=== PATIENT | male | born 1955 | race Two or more races ===

== ENCOUNTER 2018-05-14 07:48 | Inpatient (IN) ==
--- NOTE | 2018-05-14 07:59 | PDOC ---
Neuro Symptoms / Deficit HPI - General Chief Complaint: Neurological Complaints Stated Complaint: STROKE Date Seen by Provider: 05/14/18 Time Seen by Provider: 07:53 Source: POSITIVE: Patient, Other Exam Limitations: POSITIVE: No limitations - History of Present Illness Initial Comments: Patient presents to the emergency department this morning with right-sided facial droop and unsteadiness on his feet. His speech is also slurred. He showed up to work at [address] He states he woke up feeling ill. He states that he went to bed last night at an unknown time. He drinks daily and states he drinks approximately 6 beers daily, normal-sized beers. Patient's only complaint today is right-sided throat pain. He states it hurts when he swallows. His boss and friends accompany him to the emergency department today. The patient does not know when his facial droop started. He states he felt well when he went to bed last night. He states his last alcoholic beverage was approximately 8 PM and his last food intake was approximately 7 PM last night. He denies any chest pain, shortness of breath, abdominal pain, nausea/vomiting/diarrhea. He denies any urinary complaints at this time. Body Location Affected: REPORTS: Head, Face Timing: REPORTS: Abrupt Duration: Unknown Severity: Moderate - Patient Home Medications Home Medications: Home Medications NK 05/14/18 - Patient Allergies Allergies/Adverse Reactions: Allergies 3 Allergy/AdvReac Type Severity Reaction Status Date / Time No Known Allergies Allergy Verified 05/14/18 08:15 Past Medical History - heen HEENT History: Denies History Cardiovascular History: Denies History Respiratory History: Denies History Gastrointestinal History: Denies History Genitourinary History: Denies History Endocrine History: Denies History Musculoskeletal History: Denies History Neurological History: Denies History Blood Disorders: Denies History Psychiatric History: Denies History Cancer History: Denies History History of MDRO: No Alcohol Use: None In the Past 12 Months, Have Used or Abuse Any Substance: None Previous Surgical History: No Significant Family History: No pertinent family hx ROS - Limitations ROS Limitations: Intoxication Constitution: DENIES: Chills, Fever Cardiovascular: REPORTS: Denies Cardiac Symptoms Respiratory: REPORTS: Denies Resp Symptoms Neurological: REPORTS: Confusion, Difficulty Walking, Facial Asymmetry. DENIES : Numbness, Dysphagia Gastrointestinal: REPORTS: Denies GI Symptoms Endocrine: REPORTS: Denies Symptoms Musculoskeletal: REPORTS: Denies MS Symptoms Genitourinary: REPORTS: Denies Symptoms Eyes: REPORTS: Denies Symptoms ENT: REPORTS: Sore Throat Skin: REPORTS: Denies Skin Symptoms Lympathic: REPORTS: Denies Lympathic Symptoms Immunologic: POSITIVE: Denies Symptoms Psychiatric: POSITIVE: Confusion. NEGATIVE: Depression, Suicidal Thoughts Neuro Symptoms / Deficit Exam - General Appearance General Appearance: POSITIVE: Alert, Mild Distress - HEENT HEENT: POSITIVE: PERRL, EOMI, Dry Mucous Membranes, Other (breath smells of alcohol. Right sided facial droop. Speech slurred) - Pupil Size Pupil Size: 4 mm: Bilateral - Neuro / Psych Higher Functions: POSITIVE: Oriented to Person, Oriented to Place, Appropriate Mood, Appropriate Affect, Disoriented to Time, Speech Abnormalities. NEGATIVE: Oriented to Time Cranial Nerves: POSITIVE: Facial Palsy, Forehead Spared. NEGATIVE: Numbness Cerebellar: POSITIVE: Normal As Tested Peripheral Exam: POSITIVE: Sensation Normal, Reflexes Normal. NEGATIVE: Pronator Drift RUE, Pronator Drift LUE Reflexes: Patellar (R): 1+, Patellar (L): 1+, Bicep (R): 1+, Bicep (L): 1+ - Neck Neck: POSITIVE: Supple, Non-Tender. NEGATIVE: Meningismus - Respiratory Respiratory: POSITIVE: No Respiratory Distress, Breath Sounds Normal - Cardiovascular Cardiovascular: POSITIVE: Regular Rate & Rhythm, Heart Sounds Normal Peripheral Pulses: Radial (R): 2+, Radial (L): 2+, Dorsalis-pedis (R): 2+, Dorsalis-pedis (L): 2+ - Abdomen Abdomen: Soft: (All Quadrants), Normal Bowel Sounds: (All Quadrants), Denies Tenderness: (All Quadrants) Neuro Symptom/Deficit Progress - Results Reviewed by me Xrays/CTs/US Reviewed by me: Yes Discussed with Radiologist: Yes Radiology Findings: No acute stroke. Old lacunar infarct Lab Results Reviewed by Me: Yes CBC and BMP: 05/14/18 07:48 05/14/18 07:48 Lab Results:: Laboratory Results 3 05/14/18 05/14/18 05/14/18 07:48 07:48 07:48 WBC 6.50 RBC 5.24 Hgb 16.5 Hct 46.1 MCV 88.0 MCH 31.5 H MCHC 35.8 RDW Std Deviation 45.2 RDW Coeff of Elly 14.1 Plt Count 243 MPV 9.4 Immature Gran % (Auto) 0.2 Neut % (Auto) 57.4 Lymph % (Auto) 33.5 [place] % (Auto) 7.5 Eos % (Auto) 1.1 Baso % (Auto) 0.3 Immature Gran # (Auto) 0.01 Neut # (Auto) 3.73 Lymph # (Auto) 2.18 [place] # (Auto) 0.49 Eos # (Auto) 0.07 Baso # (Auto) 0.02 WBC Morphology Comment Normal morphology Plt Morphology Comment Normal morphology RBC Morph Comment Normal morphology PT 11.2 INR 1.06 APTT 26.2 VBG pH VBG pCO2 VBG HCO3 VBG Base Excess Sodium 135 Potassium 4.3 Chloride 99 Carbon Dioxide 24 Anion Gap 12 BUN 17 Creatinine 0.9 Estimated GFR > 60 BUN/Creatinine Ratio 18.88 Glucose 364 H Calculated Osmolality 296.0 H Calcium 9.2 Total Bilirubin 0.7 AST 34 ALT 35 Alkaline Phosphatase 90 Troponin I Total Protein 7.1 Albumin 4.3 Globulin 2.9 Albumin/Globulin Ratio 1.40 Ur Collection Type Urine Color Urine Clarity Urine pH Ur Specific [place] U Specif Grav (Refrac) Urine Protein Urine Glucose (UA) Urine Ketones Urine Occult Blood Urine Nitrate Urine Bilirubin Urine Urobilinogen Ur Leukocyte Esterase Urine RBC Urine WBC Ur Squamous Epith Cells Ur Renal Epithelial Cell Urine Crystals Urine Bacteria Urine Casts Urine Mucus Urine Trichomonas Urine Yeast Urine Opiates Screen Ur Buprenorphine Ur Oxycodone Screen Urine Methadone Screen Ur Propoxyphene Screen Barbiturate Screen U Tricyclic Antidepress Phencyclidine Screen Amphetamines Screen U Methamphetamines Scrn Benzodiazepines Screen Cocaine Screen U Marijuana (THC) Screen Serum Alcohol 13 H Group A Strep Screen 3 05/14/18 05/14/18 05/14/18 07:48 07:57 08:35 WBC RBC Hgb Hct MCV MCH MCHC RDW Std Deviation RDW Coeff of Elly Plt Count MPV Immature Gran % (Auto) Neut % (Auto) Lymph % (Auto) [place] % (Auto) Eos % (Auto) Baso % (Auto) Immature Gran # (Auto) Neut # (Auto) Lymph # (Auto) [place] # (Auto) Eos # (Auto) Baso # (Auto) WBC Morphology Comment Plt Morphology Comment RBC Morph Comment PT INR APTT VBG pH 7.43 H VBG pCO2 38 L VBG HCO3 25 VBG Base Excess 1 Sodium Potassium Chloride Carbon Dioxide Anion Gap BUN Creatinine Estimated GFR BUN/Creatinine Ratio Glucose Calculated Osmolality Calcium Total Bilirubin AST ALT Alkaline Phosphatase Troponin I < 0.012 Total Protein Albumin Globulin Albumin/Globulin Ratio Ur Collection Type Voided specimen Urine Color Yellow Urine Clarity Clear Urine pH 7.0 Ur Specific [place] 1.015 U Specif Grav (Refrac) Urine Protein Negative Urine Glucose (UA) 500 Urine Ketones Negative Urine Occult Blood Trace Urine Nitrate Negative Urine Bilirubin Negative Urine Urobilinogen 0.2 Ur Leukocyte Esterase Negative Urine RBC Rare Urine WBC 0 Ur Squamous Epith Cells Rare Ur Renal Epithelial Cell None Urine Crystals None Urine Bacteria None Urine Casts None Urine Mucus None Urine Trichomonas None Urine Yeast None Urine Opiates Screen Ur Buprenorphine Ur Oxycodone Screen Urine Methadone Screen Ur Propoxyphene Screen Barbiturate Screen U Tricyclic Antidepress Phencyclidine Screen Amphetamines Screen U Methamphetamines Scrn Benzodiazepines Screen Cocaine Screen U Marijuana (THC) Screen Serum Alcohol Group A Strep Screen 3 05/14/18 05/14/18 08:35 08:45 WBC RBC Hgb Hct MCV MCH MCHC RDW Std Deviation RDW Coeff of Elly Plt Count MPV Immature Gran % (Auto) Neut % (Auto) Lymph % (Auto) [place] % (Auto) Eos % (Auto) Baso % (Auto) Immature Gran # (Auto) Neut # (Auto) Lymph # (Auto) [place] # (Auto) Eos # (Auto) Baso # (Auto) WBC Morphology Comment Plt Morphology Comment RBC Morph Comment PT INR APTT VBG pH VBG pCO2 VBG HCO3 VBG Base Excess Sodium Potassium Chloride Carbon Dioxide Anion Gap BUN Creatinine Estimated GFR BUN/Creatinine Ratio Glucose Calculated Osmolality Calcium Total Bilirubin AST ALT Alkaline Phosphatase Troponin I Total Protein Albumin Globulin Albumin/Globulin Ratio Ur Collection Type Voided specimen Urine Color Urine Clarity Urine pH Ur Specific [place] U Specif Grav (Refrac) 1.022 Urine Protein Urine Glucose (UA) Urine Ketones Urine Occult Blood Urine Nitrate Urine Bilirubin Urine Urobilinogen Ur Leukocyte Esterase Urine RBC Urine WBC Ur Squamous Epith Cells Ur Renal Epithelial Cell Urine Crystals Urine Bacteria Urine Casts Urine Mucus Urine Trichomonas Urine Yeast Urine Opiates Screen Negative Ur Buprenorphine Negative Ur Oxycodone Screen Negative Urine Methadone Screen Negative Ur Propoxyphene Screen Negative Barbiturate Screen Negative U Tricyclic Antidepress Negative Phencyclidine Screen Negative Amphetamines Screen Negative U Methamphetamines Scrn Negative Benzodiazepines Screen Negative Cocaine Screen Negative U Marijuana (THC) Screen Negative Serum Alcohol Group A Strep Screen Negative Labs reviewed. BG noted to be elevated on POC testing at 361. pH7.42; pCO2 38 ; HCO3 25 EKG Interpreted/Reviewed By Me:: Yes (NSR at 66 bpm. No acute ischemia) EKG Interpretation:: POSITIVE: Normal Sinus Rhythm, Normal Rate, Normal ST/T, Other (Left axis deviation with intraventricular conduction delay) - Patient's Progress Pain Medication Addressed: POSITIVE: Not Applicable Status: POSITIVE: Unchanged MDM / ED Course: Patient presented to the emergency department with complaints of right-sided facial droop, slurred speech and unsteady gait. Upon initial assessment the patient does have slurred speech and right-sided facial droop but no obvious weakness of his extremities. His NH stroke scale by my assessment was 4. EKG was obtained and by my interpretation shows a sinus rhythm at 66 bpm with left axis deviation and a intraventricular conduction delay with a QRS of 124 ms. There are no ST or T wave changes indicative of acute ischemia. Due to the patient's neurologic symptoms a CT the patient's head was obtained which showed no acute stroke per the radiologist but did show an old lacunar infarct. I subsequently discussed case with Dr. Ojeda of [place] [facility] in [place]. After lengthy discussion Dr. Ojeda recommended against using TPA on this patient as the patient's symptom onset is unknown and his NIH stroke scale is low. He did recommend obtaining MRI/MRA of the patient's head and neck. I subsequently discussed the case with Dr. Walter, hospitalist, who accepted the patient for admission. All results were discussed with the patient and his accompanied friends. They express understanding of results and need for admission and were amenable to the plan. Patient was subsequently admitted to hospitalist service in stable and unchanged condition. CVA/Syncope Quality Measure Initiative: POSITIVE: EKG, t-PA Considered, NIH Stroke Scale (Patient has NIH of 4 by my calculation. Due to unknown onset of symptoms and NIH scale he is not a candidate for tPA. I did discuss the case with Dr. Ojeda of [place] [facility] and he agrees that patient is not a tPA canidate and needs MRI/MRA brain and carotids for further evaluation.) - Consult Consult (If Yes, Name of Consulting MD & Time Called): Yes (Dr. Ojeda at 0835) Consulting MD will see pt:: POSITIVE: Other (phone consult. Recommended patient could stay in [place] and obtain MRI/MRA there) Patient Care Time - Estimated PCT Patient Care Time (In Minutes): 65 Vital Signs - Recent Vital Signs Vital Signs: Vital Signs (Last 8 hours) Temp Pulse Resp BP Pulse Ox 05/14/18 07:49 97.2 F 67 14 207/111 98 - VS Reviewed Vital Signs Reviewed: Yes Discharge Clinical Impression: Cerebrovascular accident, Hypertension Discharge Disposition: Admit to Inpatient (May 14 at 0825 am. Case discussed with Dr. Díaz) Condition: Fair Follow Up With: NONE,NONE [Primary Care Provider] - Date Decision to Admit to Inpatient: 05/14/18 Time Decision to Admit to Inpatient: 08:25
[2018-05-14 08:10] LABS: BASOPHILS # (AUTO) 0.02 10*3/UL; BASOPHILS % (AUTO) 0.3 % (0-1); EOSINOPHILS # (AUTO) 0.07 10*3/UL; EOSINOPHILS % (AUTO) 1.1 % (0-8); Hematocrit [HCT] 46.1 % (42.0-52.0); Hemoglobin [HGB] 16.5 g/dL (14.0-18.0); LYMPHOCYTES # (AUTO) 2.18 10*3/uL; MEAN CORPUSCULAR HEMOGLOBIN 31.5 PG (27-31); MEAN CORPUSCULAR HGB CONC 35.8 g/dL (33-37); MEAN PLATELET VOLUME 9.4 FL (7.4-12.2); MONOCYTES # (AUTO) 0.49 10*3/UL (0.3-0.8); MONOCYTES % (AUTO) 7.5 % (5-15); NEUTROPHILS # (AUTO) 3.73 10*3/UL; NEUTROPHILS % (AUTO) 57.4 % (50-80); RED BLOOD COUNT 5.24 10^6/uL (4.70-6.10)
[2018-05-14 08:11] LABS: PLATELET MORPHOLOGY COMMENT NORMAL MORPHOLOGY (NORM); RBC MORPHOLOGY COMMENT NORMAL MORPHOLOGY (NORM); WBC MORPHOLOGY COMMENT NORMAL MORPHOLOGY (NORM)
[2018-05-14 08:15] LABS: VENOUS PH 7.43 (7.32-7.42)
--- NOTE | 2018-05-14 08:20 | EKG ---
[address] [address] Measurements Intervals [place] Rate: 66 P: 16 CT: 201 QRS: -44 QRSD: 124 T: 53 QT: 423 QTc: 437 Interpretive Statements SINUS RHYTHM MARKED LEFT AXIS DEVIATION [QRS AXIS < -30] MODERATE INTRAVENTRICULAR CONDUCTION DELAY [110+ ms QRS DURATION] Compared to ECG 06/07/2014 07:28:19 Left-axis deviation now present Electronically Signed On 05-14-18 08:59:20 MDT by Shayne Still MD [email or web address]
[2018-05-14 08:23] LABS: BLOOD UREA NITROGEN 17 mg/dL (7-22); BUN/CREATININE RATIO 18.88 (6-20); SERUM ALBUMIN 4.3 g/dL (3.5-4.8)
--- NOTE | 2018-05-14 08:27 | DI ---
CT HEAD SCAN WITHOUT IV CONTRAST, 05/14/2018 7:50 AM : Clinical History: Slurred speech. Facial droop. Previous Exam: None at this facility. Scans are obtained from the foramen magnum to the vertex without IV contrast. The 4th, 3rd, and lateral ventricles are of normal size, shape, position, and contour for the patient 's age. There is no evidence of an acute hemorrhagic intracranial focus. There is no acute lung infar ct. There is a small 5 mm old lacunar infarct in the right thalamus anteriorly just posterior to the posterior limb of the internal capsule. There is mild to moderate cerebral and mild cerebellar atroph y. There are no extracerebral mantles or shift of the midline structures. Bone window evaluation is n ormal. The paranasal sinuses are normal. READIN. There is no evidence of an acute hemorrhagic or bland infarct. There is an old lacunar infarct of the left thalamus. 2. Mild cerebellar and mild to moderate cerebral atrophy.
[2018-05-14 08:45] LABS: BILIRUBIN,URINE NEGATIVE (NEG); CLARITY,URINE CLEAR (CLEAR); COLOR,URINE YELLOW; GLUCOSE, URINE (UA) 500 mg/dL (NEG); PROTEIN,URINE NEGATIVE (NEG); UROBILINOGEN,URINE 0.2 mg/dL (0.2)
[2018-05-14 08:53] LABS: OCCULT BLOOD,URINE TRACE (NEG); RBC,URINE RARE /hpf; SQUAMOUS EPITHELIAL CELL,UR RARE; URINE SAMPLE TYPE VOIDED SPECIMEN; WBC,URINE 0
[2018-05-14 08:54] LABS: AMPHETAMINE SCREEN NEGATIVE (NEG); CANNABINOID SCREEN,URINE NEGATIVE (NEG); COCAINE SCREEN NEGATIVE (NEG); METHADONE URINE SCREEN NEGATIVE (NEG); METHAMPHETAMINES SCREEN,URINE NEGATIVE (NEG); OPIATE SCREEN,URINE NEGATIVE (NEG); URINE SAMPLE TYPE VOIDED SPECIMEN; URINE SPECIFIC GRAVITY - MAN 1.022
[2018-05-14] MEDS ORDERED: LORazepam 2 MG/1 ML VIAL ONE (09:29)
[2018-05-14] MEDS ORDERED: LORazepam 2 MG/1 ML VIAL IVP ONE (09:30)
--- NOTE | 2018-05-14 10:36 | PDOC ---
HPI - History of Present Illness Date of Service: 05/14/18 Time of Service: 11:15 Chief Complaint: Slurred speech, right facial droop started today, difficulty with walking also started today. History of Present Illness: This is a 63 years old male with medical history significant for history of hypertension, diabetes who was asymptomatic last night and woke up this morning and went to work and his coworker noticed that he had problem with his speech and he had right facial droop and some problem with his walking. Because of that they brought him to the ER. Had a CT of the head which showed old left lacunar infarct. And was admitted. Patient is not taking any medications for his blood pressure or his diabetes. He does not have a primary. He does not check his blood pressure or blood sugar. 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 He denied chest pain. But he had some pain he said when he swallows. No heartburn. No shortness of breath no nausea. No lightheadedness or dizziness. His coworker were helping with the translation. No chest pain. Past Medical History Medical History: 1. Hypertension. 2. Diabetes. 3. His corworkers thinks he has dementia. Surgical History: No surgeries Family History: Reviewed an Not Pertinent Past Social History: He does not smoke, he drinks 2 drinks a night however his coworker thinks that he drinks more than that. No drugs. Tobacco Use: Never Smoker In the Past 12 Months, Have Used or Abuse Any of the Following Substance: None Alcohol Use: Other (Apparently drinks every night.) Medication / Allergies Home Medications: Home Medications 3 Medication Instructions Recorded Confirmed Type NK 05/14/18 05/14/18 History Allergies/Adverse Reactions: Allergies 3 Allergy/AdvReac Type Severity Reaction Status Date / Time No Known Allergies Allergy Verified 05/14/18 08:15 Review of Systems - Review of Systems All Systems: Reviewed & No Additional Complaints Except as Stated Exam - Vitals Vital Signs: Vital Signs Temperature 97.2 F Temperature Source Temporal Artery Scan Pulse Rate [Pulse Oximeter 67 Right] Respiratory Rate 14 Blood Pressure [Left Arm] 207/111 Pulse Ox 98 Oxygen Delivery Method Room Air Height 5 ft 9 in Weight 170 lb - General General Appearance: No Acute Distress - Head Head Exam: Normal Inspection - Eye Eye Exam: POSITIVE: Normal Appearance - ENT ENT Exam: POSITIVE: Normal Exam - Neck Neck Exam: Normal Inspection - Respiratory Respiratory Exam: POSITIVE: Clear to Auscultation - Bilaterally - Cardiovascular Cardiovascular Exam: POSITIVE: RRR - GI/Abdominal GI/Abdominal Exam: POSITIVE: Normal Bowel Sounds, Non Tender, Non Distended, Soft, No Organomegaly - Rectal Rectal Exam: POSITIVE: Deferred - External Exam: POSITIVE: Deferred Exam: POSITIVE: Deferred - Extremities Extremities Exam: POSITIVE: Normal Inspection - Back Back Exam: POSITIVE: Normal Inspection - Neurological Neurological Exam: POSITIVE: Alert, Oriented x 3 Additional Neurological Exam Details: There is right facial droop noted, slurred speech, septal handgrip weakness on the right. He is leaning more towards the right side. - Psychiatric Psychiatric Exam: POSITIVE: Normal Affect - Integumentary Integumentary Exam: POSITIVE: Normal Color Results - Labs CBC and BMP: 05/14/18 07:48 05/14/18 07:48 - EKG Data -: EKG Interpreted by Me Rate: Normal EKG Shows Normal: Sinus Rhythm - EKG Data When Compared to Previous EKG(s) There Are: Other (Shows left axis deviation and incomplete right bundle branch block) - Imaging Status: Report Reviewed by Me (CT head 1. There is no evidence of an acute hemorrhagic or bland infarct. There is an old lacunar infarct of the left thalamus. 2. Mild cerebellar and mild to moderate cerebral atrophy.) Assessment and Plan - Patient Problems (1) Cerebrovascular accident Current Visit: Yes Status: Acute Comment: Symptoms suggestive of CVA. The CT that he had showed old lacunar infarct. Waiting for MRI results. We'll ask for swallow evaluation. PT and OT assessment. Will put him on aspirin, statin and check his lipids in the morning. Code(s): I63.9 - Cerebral infarction, unspecified (2) Hypertension Current Visit: Yes Status: Acute Comment: We'll watch his blood pressure depending on his numbers will decide whether we need to be treated today or wait until tomorrow and then we initiate treatment. Code(s): I10 - Essential (primary) hypertension (3) Diabetes Current Visit: Yes Status: Acute Comment: We'll check his A1c, put him on sliding scale. We'll give him some fluid today. Code(s): E11.9 - Type 2 diabetes mellitus without complications
--- NOTE | 2018-05-14 10:51 | DI ---
MR ANGIOGRAM OF THE NECK, 05/14/2018 8:36 AM: Clinical History: Slurred speech. Facial droop. Previous Exam: None at this facility. Axial 3-D TOF and coronal 3D T-SLIP and SSFP images are reconstructed into a 3D MIP format. Scans are performed from below the sternal notch to of the neck to the base of the skull without cont rast. The common carotid arteries are normal from their origins to the bifurcations. 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 The internal and external carotid arteries in the neck region are normal. The inte rnal carotid arteries from the base of the skull to the cavernous sinuses are also normal. Both verte bral arteries are visualized and are normal. The vertebral arteries are codominant. The reconstructed 3-D images show poor visualization of the vertebral arteries but the axial source images show both v ertebral arteries to be intact. READIN. Normal MR angiogram of the carotid arteries. 2. The vertebral arteries are also normal. They are codominant.
[2018-05-14] MEDS ORDERED: LIDOCAINE W/ SODIUM BICARB 0.5 ML SYR SUBD PRN (11:10)
[2018-05-14] MEDS ORDERED: ACETAMINOPHEN 325 MG TABLET PO PRN (11:10)
[2018-05-14] MEDS ORDERED: DOCUSATE 100 MG CAPSULE PO PRN (11:10)
[2018-05-14] MEDS ORDERED: ONDANSETRON 4 MG/2 ML VIAL IVP PRN (11:10)
[2018-05-14] MEDS ORDERED: CALCIUM CARBONATE 500 MG (TUMS) CHEWABLE TABLET PO PRN (11:10)
[2018-05-14] MEDS ORDERED: ASPIRIN 325 MG EC TABLET PO ONE (11:17)
--- NOTE | 2018-05-14 11:26 | DI ---
MRI BRAIN SCAN WITHOUT IV CONTRAST, 05/14/2018 8:36 AM: Clinical History: Slurred speech. Facial droop. Previous Exam: None at this facility. Sequences: Sagittal T1; Axial LITA T2 and FLAIR. Axial diffusion weighted images with ADC mapping were also performed. Motion artifacts are present on almost all sequences. The 4th, 3rd, and lateral ventricles are of normal size, shape, position, and contour for this patien t's age. There is no evidence of an acute hemorrhagic or bland infarct. There is an old 5 mm lacunar infarct of the left thalamus anteriorly. In addition, there is a small focal infarct of the left cere bellar hemisphere that in retrospect was also present on the CT scan obtained earlier today. There is no evidence of small vessel ischemic disease. There is mild cerebellar and cerebral atrophy. Diffusi on weighted imaging with ADC mapping is otherwise normal. There are no extracerebral mantels or shift of the midline structures. The paranasal sinuses are normal. Readin. There is no acute hemorrhagic or bland infarct. There is a small lacunar infarct of the anterior aspect of the left thalamus. There is also an old focal infarct of the left cerebellar hemisphere santiago t in retrospect was present on the CT scan. 2. There is no evidence of small vessel ischemic disease. 3. Mild cerebellar and cerebral atrophy.
--- NOTE | 2018-05-14 12:02 | DI ---
MR ANGIOGRAPHY OF THE [place] OF [place], 05/14/2018 8:36 AM: Clinical History: Slurred speech. Facial droop. Previous Exam: None at this facility. High resolution axial 3D thin slice time of flight scans are performed for the arterial phase. 3D MIP S reconstructions are obtained. Artifacts are present and this prevents assessment of the intracrania l vasculature. The vertebral arteries are co-dominant. There is no basilar tip aneurysm or aneurysm arising from the vertebral-basilar branches. There are no identifiable posterior communicating arteries. On the axial images, there is what apparently represents the anterior communicating artery and it is normal. The right A1 is not visualized and this can either be secondary to a motion artifact or is congenitally a bsent. The right A2 segment and the left A1 and A2 segments are normal. Both M1 through M3 branches b ilaterally are nonvisualized presumably because of motion artifacts. Readin. The basilar artery and basilar tip are normal. The left A1 and A2 segments and what presumably re presents the left anterior communicating artery are normal. The right A1 segment is not visualized an d either is congenitally absent or this is not visualized secondary to motion artifact. The left A2 s egment is normal. 2. Neither [id number] M3 segment is visualized presumably secondary to motion artifact. If further ev aluation of the [place] of [place] is required, then consider a CT angiogram of the [place] of [place].
[2018-05-14] MEDS: Sodium Chloride 0.9% 1,000 ML PRIMARY IV SCH ×2 (12:45→23:31)
[2018-05-14] MEDS: Insulin Lispro Flexpen 300 UNIT/3 ML INSULN.PEN SUBCUT SCH ×2 (17:15→21:25)
[2018-05-14] MEDS: ATORVASTATIN 40 MG TABLET PO SCH (21:25)
[2018-05-15 05:14] LABS: CHOL/HDL RATIO 3.96 RATIO (0-4.0); HEMOGLOBIN A1C 11.61 % (4.2-6.0)
[2018-05-15] MEDS: Insulin Lispro Flexpen 300 UNIT/3 ML INSULN.PEN SUBCUT SCH ×4 (07:43→21:31)
[2018-05-15] MEDS ORDERED: ASPIRIN 325 MG EC TABLET PO SCH (09:00)
--- NOTE | 2018-05-15 10:01 | OTI REPORT ---
Thank you for the referral of Fortino Limon. He was seen on 05/14/18 for an occupational therapy swallow evaluation. SUBJECTIVE: The patient is a 63-year-old male who is being seen secondary to having effects of a CVA on the right side. The patient has had a stroke in the past. The patient is Argentine speaking and his [id number] was available today to be the language interpreter during the evaluation. 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 He has been put on NPO since he has had the effects of the stroke. PAST MEDICAL HISTORY: Past medical history can be found in the patient's medical record. OBJECTIVE FINDINGS: Pre-Swallow Assessment: Alertness and responsiveness: The patient was alert and responsive 50% of the time. The patient was very tired today and closed his eyes several times during the evaluation. Reliable responses: Reliability of the patient's responses are questionable. Facial droop: The patient has a facial droop on the right side which has affected his eye, his levator nasi, forehead muscles, buccal muscles, and all the oral motor muscles. The patient is demonstrating weakness on the right side. Following directions: The patient is not able to follow two step directions. Neglect/Apraxia: The patient is demonstrating right neglect as well as apraxia. Cough: The patient's cough is weak. Nutrition and intake method: Since the patient's stroke, the patient's nutrition and intake method has been NPO. Prior to this incident the patient was on a regular diet. Respiratory status: The patient's oxygen saturation has been staying above the 90s and he does not need oxygen at this time. Secretions: The patient is not able to handle his own secretions. He does have some drooling on the right side of his mouth. Dentition: The patient's dentition is poor. He has 11 teeth on top; however, some of those teeth are not in good shape. The patient has 10 teeth on the bottom and is missing all of his teeth on the bottom left side. Tongue control: The patient has poor tongue control and poor coordination, especially on the right side. Tone is flaccid on the right side. Lip control: Lip control was poor. The patient had drooling on the right side of his mouth. Lingual function: Lingual function was fair. He did speak Argentine, but there were words that were able to be understood including numbers and one word phrases. Head control: The patient had mild difficulties with head control. Gag reflex: The patient had a hypo-active gag reflex. Sensation: Sensation on the right of the buccal, labial, and lingual areas appear to be affected; however, the patient may have had difficulty understanding instructions. General observations: The patient alejandra to the right and has poor posture to the right. It appears that his whole right side has been affected. Feeding Assessment: The patient was transferred to an upright chair and a pillow had to be placed under his right arm to keep it in place. The patient was in the most upright position when swallowing during the assessment today. The patient had an intact , automatic swallow. Laryngeal elevation is at approximately 75%. Today we started with a small sip of water. The patient did well with the first sip. We then went to pudding like texture. We tried having the patient use his right hand to feed himself. He typically uses his left hand to assist when eating. The patient's right arm was not coordinated enough to bring his hand to his mouth; he had a lot of weakness and coordination issues. The therapist had the patient eat three bites of pudding and the patient did well with this and was negative for coughing. He had 80% laryngeal elevation and decent bolus control. Swallow transit time was within normal limits. We had the patient take a tiny sip of water again. This time the patient demonstrated a lot of coughing and external signs of aspiration. We then went to nectar thickened liquid. The patient had a small sip and coughed quite hard. We gave the patient a little bit of a break and went on to applesauce which is a little thinner than pudding. The patient was able to eat this without difficulty. Next the patient tried honey thickened liquid. The patient used a straw and we had him just take one sip out of the straw. The patient did well with the honey thickened liquid. There were no external signs of aspiration. The patient then went on to eat more pureed food between the pudding and the applesauce and ended up finishing both of those. The patient drank approximately three ounces of honey thickened liquid without external signs of aspiration. ASSESSMENT: Medications should be crushed and put in a puree. The patient will need assistance with feeding self, especially in the beginning. We will continue to work on this type of goal with the patient during eating times. Position during assessment: 90 degrees. The patient did choke on thin and nectar thickened liquids. Rate of swallow: SLOW. Swallow efficiency for PO intake: The patient should be able to eat pureed food and drink honey thickened liquids for his nutrition. Patient will be using vital-stim in order to increase neuromuscular reeducation of the facial area as well as the pharyngeal region. RECOMMENDATIONS: 1. The patient will have honey thickened liquids. 2. The patient is to be on a pureed diet. He cannot have thinner than an applesauce like texture. He needs to have soups thickened. 3. Medications should be crushed and placed in a thicker puree. 4. The patient is to sit at 90 degrees at all times. 5. The patient may need assistance with feeding self. 6. The patient will need to have single sips of his honey thickened liquid through a straw. 7. The patient should remain upright for 30 minutes after each eating session. Dr. Walter was informed of the results and recommendations as was his nurse. SWALLOW GOALS: Patient will be able to use right hand in order to feed self. Patient will be able to eat 100% of selected diet without external signs of aspiration. Patient will perform oral exercises with min assist 1-2X daily. Patient and caregivers will follow safety precautions 100% of the time. Caregivers will assist the patient in using correct positioning 100% of the time when observed eating by OT. Patient will respond to vital-stim, not only for his facial droop, but for swallow strength. Patient will increase laryngeal elevation to 100%. Patient will be able to improve to a mechanical soft diet for an increase in diet texture. INITIAL TREATMENT: Treatment today consisted of the swallow evaluation only. MAGED
--- NOTE | 2018-05-15 10:16 | OTI REPORT ---
Thank you for the referral of Fortino Limon. He was seen on 05/14/18 for an occupational therapy inpatient evaluation. 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 Prior to admission the patient was independent with all activities of daily living and functional activities. 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 The patient was able to dress self and completed all basic ADLs by himself. The patient's [id number] was present today to interpret as the patient is Persian speaking. PAST MEDICAL HISTORY: Past medical history can be found in the patient's medical record. OBJECTIVE FINDINGS: General observations: The patient has a very prominent droop on the right side with his right upper extremity. The patient was able to sit in a chair with a back and two side arms with support on the right side. Bed mobility: The patient was able to come from supine to sit with max assist. Range of motion: The patient was able to go from 0 to 150 degrees of shoulder flexion, 0 to 130 degrees of shoulder abduction, external rotation with shoulder in neutral was to 40 degrees. The patient has range of motion of 50% at the wrist. The patient is able to make a fist slowly. He was able to oppose his thumb to digits 2, 3, and the radial side of the 4th. He was not able to oppose to the 5th digit. Coordination: The patient's coordination is very limited. He is approximately 4 -5X slower with movement. Strength: Strength on the right side for shoulder flexion was 3/5, abduction was 3/5, external rotation was 3/5. The patient has a remarkable decrease in dice dealer strength on the right vs. the left. Activities of daily living: The patient requires max assist for dressing upper extremities and max assist for dressing lower extremities. Balance: Standing balance requires max assist as the patient tends to lean to the right. Vision: The patient was able to track approximately 25% of the time. He did report when he sees up close, he is seeing double. When seeing far away, he says things look like one object. The patient had a lot of difficulty tracking objects to the right and needed cues in order to find the object once it was past approximately 40 degrees of the right peripheral field. Sensation: The patient reports slight numbness in his fingertips. Transfers: The patient requires max assist for functional transfers. ASSESSMENT: The patient would benefit from skilled occupational therapy to address improving his abilities with ADLs, upper extremity strength, coordination, visual tracking, and functional activities. The patient's goal is to return home. His daughter reports there is no one to take care of him if he was to return home. All of his family members that live out at [facility] do work and would not be able to care for him. This gentleman may need some longer term rehab. Hopefully he makes enough improvements to be able to return home. In the long run, he may need a 24-hour care facility. Problem List: Right sided weakness Balance difficulties Decreased strength on the right side Decreased coordination on the right side Decreased visual tracking Right facial droop Decreased ability to perform ADLs including hygiene and feeding himself Decreased dice dealer strength Short-Term Goals: To be met by discharge from inpatient: Patient will be able to dress lower extremities with mod assist and upper extremities with min assist. Patient will be able to feed self with use of a spoon with min assist. Patient will increase upper extremity strength in all planes and ranges to 4/5. Patient will be able to demonstrate good visual tracking in all planes and will not have double vision. Patient will be able to complete a toilet transfer with min assist. Patient will be able to complete a shower transfer and shower task with min assist. Patient will be able to stand 5 minutes at sink to complete hygiene activities. Long-Term Goals: To be met following discharge from inpatient: Patient's goal is to return home, demonstrating independence and safety with all activities of daily living. Patient will be able to complete higher level activities of daily living independently. TREATMENT PLAN: Patient will be seen B.I.D during the week and one time per day over the weekend as an inpatient to address the above goals and objectives. INITIAL TREATMENT: Treatment today consisted of the initial evaluation followed by attempting to have the patient dress lower extremities for which the patient required max assist. We worked on diagonal PNF patterns while sitting in chair and reaching for various sized objects. One was a big water container; the patient had difficulty wrapping his fingers around the handle, especially the fourth and fifth digits. The patient was able to hold onto Kleenex and chapstick with min assist and reach in diagonal patterns while sitting. The patient then transferred back to bed with max assist and needed mod assist to complete bed mobility. MAGED
--- NOTE | 2018-05-15 10:45 | PTI REPORT ---
Thank you for the referral of Fortino Limon. He was seen on 05/14/18 for an inpatient evaluation secondary to right sided weakness. SUBJECTIVE: The patient is a 63-year-old male who was brought to the ER this morning by his co-workers secondary to right sided weakness, difficulty speaking, and a right facial droop. The patient is primarily Azerbaijani speaking and we did have an sliver chopper from therapy present during our evaluation. The patient states that he woke up this morning and did notice some symptoms, primarily with his swallowing and speaking. The patient's employer was also present during the end of the evaluation and that is who reported that his co-workers had brought him in due to his symptoms. 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 The patient denies any pain during the evaluation, but states that his right side feels a little weaker. His biggest complaint is swallowing. The patient is a diabetic and he does have a difficult time monitoring his Diabetes at times and also does have the beginning signs of dementia. PAST MEDICAL HISTORY: Past medical history can be found in the patient's medical record. OBJECTIVE FINDINGS: General observations: The patient was alert and oriented to setting upon PT arrival. The patient was laying in bed. The patient was able to answer some simple questions but did have some difficulties with speaking and swallowing. The patient does have a notable right facial droop. Bed mobility: The patient was able to perform a supine to seated edge of bed transition with contact guard assist x1 for safety. In a seated position the patient demonstrates deviation to the right and primarily sits with his midline toward the right. The patient was able to perform a seated to supine transfer with stand by assist x1 for safety. Strength: The patient was able to perform seated manual muscle testing with simple cues. The patient demonstrated 4/5 bilateral lower extremity strength. Range of motion: The patient demonstrated motion in bilateral shoulders that was within functional limits. Coordination: The patient did have difficulty with rapid alternating hand movements and also finger to nose alternating. Transfers: The patient was able to move from a seated to standing position with contact guard assist x2 for safety. The patient does have a right lateral lean. The patient was able to move from a standing to seated position with use of hands to control his descent. Ambulation: The patient did utilize a front wheeled walker in order to ambulate. The patient had a difficult time staying in the walker and tended to veer toward the right and would at times get out of the walker with the right foot, yet hold the walker still towards the left and did need tactile cueing to correct. The patient demonstrated a shortened stride length with the walker as well. The patient required max cueing in order to make a turn without use of walker and hand hold assist x1. ASSESSMENT: The patient has fair rehab potential secondary to his past medical history and current status along with the barrier of the patient being primarily Azerbaijani speaking. Problem List: Weakness of the right side compared to the left Antalgic gait with issues with veering toward the right Decreased seated balance due to his right lateral lean Patient is a HIGH fall risk Short-Term Goals: To be met by discharge from inpatient: Patient will be able to perform transfers from bed to stand safely and independently. Patient will be able to ambulate at least 150 feet with least restrictive assistive device safely and independently. Patient will be able to participate in at least 30 minutes of physical therapy activity to demonstrate improved strength and endurance to return to his prior level of function. Long-Term Goals: To be met following discharge from inpatient: Patient may be seen by outpatient physical therapy if deemed necessary upon time of discharge. TREATMENT PLAN: Patient will be seen B.I.D during the week and one time per day over the weekend as an inpatient to address the above goals and objectives. The patient lives at home by himself. Depending how the patient progresses, we will look into other options if we are not able to restore the patient back to prior level of function, especially with the patient's more recent onset of early stages of dementia and alcohol abuse. INITIAL TREATMENT: Treatment today consisted of the initial evaluation activities. The patient was left in bed with alarm set and call light within reach. MAGED
--- NOTE | 2018-05-15 11:44 | PT.PROG ---
Progress Note Progress Note: Patient stated that he was very tired after working with OT and would like to wait to do PT this morning. Patient will be seen this afternoon.
[2018-05-15 16:06] VITALS: RESP 20; O2SAT 93
--- NOTE | 2018-05-15 16:53 | PT.PROG ---
Progress Note Progress Note: S. Patient agreed to go to the therapy gym this afternoon. O. Patient ambulated 175 feet to the therapy gym where he performed seated exercises in the form of; marches, long arc quads, ball squeezes, clam shells all x 10 bilaterally with 4#, balance grid x 2 and box step ups with #3 box x 10 , Patient performed sit to stands x10, and kat step overs with 5 hurdles x 2 laps Patient then ambulated 175 feet back to his room where he was left in chair with alarm and call light. A. Patient tolerated therapy fair this afternoon, he was able to perform strength exercises with ease, however struggled with balance activities, he required mod assist to correct his balance frequently, patient continues to lean to the right while ambulating. Patient would continue to benefit from skilled therapy to increase strength, and mobility. P. Continue POC.
[2018-05-15] MEDS ORDERED: ENALAPRIL 10 MG TABLET PO ONE (19:28)
--- NOTE | 2018-05-15 19:28 | PDOC(PROG) ---
Date and Time of Service: 05/15/2018 192 Interval History: No chest pain, shortness breath, nausea or vomiting. States that his strength is 50% better. CARLOS Gomez, was present to help translate as she knows Vietnamese very well. The patient states that he is having some throat pain, worse on the left side, and apparently still having some problems swallowing. Objective : Data - Labs CBC and BMP: 05/14/18 07:48 05/14/18 07:48 Additional Lab Results: 05/15/18 05/15/18 04:41 04:41 Mean Blood Glucose 300.613 Hemoglobin A1c 11.61 H Triglycerides 146 Cholesterol 246 H LDL Cholesterol, Calc 154.800 VLDL Cholesterol 29 HDL Cholesterol 62 Cholesterol/HDL Ratio 3.96 Objective : Exam - General General Appearance: No Acute Distress, Cooperative Additional General Exam Details: Vital Signs - Last Taken Temperature 97.9 F 05/15/18 16:04 Pulse Rate 60 05/15/18 16:04 Respiratory Rate 20 05/15/18 16:04 Blood Pressure 164/85 05/15/18 16:04 Pulse Ox 93 05/15/18 16:04 - Eye Eye Exam: No Scleral Icterus - ENT ENT Exam: Mucous Membranes Moist - Respiratory Respiratory Exam: Clear to Auscultation - Bilaterally, Breathing Non Labored - Cardiovascular Cardiovascular Exam: RRR, No Murmur, No Clicks, No Gallops, No Rubs, No JVD - GI/Abdominal GI/Abdominal Exam: Normal Bowel Sounds, Non Tender, Non Distended, Soft - Extremities Extremities Exam: No Clubbing Present, No Edema Present, No Cyanosis Present - Neurological Neurological Exam: Alert, Oriented x 3, Speech Intact / Clear Additional Neurological Exam Details: Positive for facial droop, right-sided. Has 4 over 5 muscle strength on upper extremity on the right side. Family felt that the speech was a little more understandable today. Assessment and Plan - Patient Problems (1) Cerebrovascular accident Current Visit: Yes Status: Suspected Code(s): I63.9 - Cerebral infarction, unspecified (2) Hypertension Current Visit: Yes Status: Acute Code(s): I10 - Essential (primary) hypertension Qualifiers: Hypertension type: essential hypertension Qualified Code(s): I10 - Essential (primary) hypertension (3) Diabetes Current Visit: Yes Status: Acute Code(s): E11.9 - Type 2 diabetes mellitus without complications Qualifiers: Diabetes mellitus type: type 2 Diabetes mellitus detention insulin use: without detention use Diabetes mellitus complication status: without complication Qualified Code(s): E11.9 - Type 2 diabetes mellitus without complications (4) Hypercholesteremia Current Visit: Yes Status: Acute Code(s): E78.00 - Pure hypercholesterolemia , unspecified - Assessment / Plan Additional Assessment/Plan Details: I think we need to add statin, aspirin, eventual metformin, and blood pressure medications to the patient's regimen for stroke prevention. The patient has recovered about 50% of his function according to him. We'll see how he does with some continued therapy, and I think overall that this is probably a transient ischemic attack although it's about 36 hours out. Using the tissue definition of transient ischemic attack, there is no acute infarction but there is what appears to be transiently improving neurologic symptoms that appear focal on exam. I would like to get an echocardiogram, and we will continue cardiac monitoring here. We may need to arrange for an echocardiogram to be done in conjunction with the patient's attentional therapy needs here. Continue PT and OT. I will write him proceed with a CTA of the head and neck to better evaluate the vasculature for any potential cerebral arterial disease or carotid artery disease. The MRA scans of the head and neck, according to the reports, and may have had some artifact interference.
[2018-05-15] MEDS: ATORVASTATIN 40 MG TABLET PO SCH (20:34)
[2018-05-15] MEDS ORDERED: Insulin Glargine SoloStar Inj 100 UNIT/ML INSULN.PEN SUBCUT SCH (21:00)
[2018-05-15 21:12] VITALS: BP 184/93; TEMP 97
--- NOTE | 2018-05-16 00:23 | DCSUMMARY ---
Hospitalization Summary Admit Date: 05/14/2018 Discharge Date: 05/15/18 Primary Diagnosis:: transient ischemic attack with right-sided weakness and Secondary Diagnosis:: Facial droop Hospital Course: This is a very pleasant 63-year-old male who came in with symptoms of right facial droop, some slurring his speech, right arm weakness, and gait with leaning towards the right. He was worked up, found to have a transient ischemic attack but no acute infarction found on imaging with CT scan of the brain or MRI scan of the brain. MRA images had some artifact, but no obvious carotid artery disease or cerebrovascular disease. PT, OT, and speech therapies were ordered. The patient was placed on statin therapy. He is placed on sliding scale insulin for what appeared to be uncontrolled diabetes and his hemoglobin A1c confirmed that. The patient reported today that he had significant improvement in his symptoms of over 50%. As the night wore on and further discussions took place on the plan, the patient determined that he would leave AGAINST MEDICAL ADVICE. Despite over an hour of discussion with the patient regarding the poor choice of leaving the hospital, he is cognizant, alert and oriented, and to make this decision on his own. His cousins inform me that he does drink alcohol and drinks a large quantity. The patient would admit to one to 2 beers per day. He would not admit to any more than that. He did not have significant alcohol withdrawal symptoms at the time of his departure from the hospital AGAINST MEDICAL ADVICE. Given that this was AGAINST MEDICAL ADVICE, I felt that the best thing to do would be to develop a plan and give him some advice on what to do. I gave prescriptions for metformin, enalapril, atorvastatin, aspirin, and an echocardiogram. I also gave a prescription for physical therapy, occupational therapy, and speech therapy. I told the patient specifically not to drive. He wants to return home to his family in [place] and plans to arrange a flight as soon as he can. I have no reason to restrict his ability to fly. His and his 5 children live in [place]. On examination, his gait had improved, he was able to ambulate with no walker or assistive device. He had improving strength in his right upper extremity. His facial droop persists but his speech seems to be more understandable. Again despite multiple pleads for the patient to stay for continued workup and evaluation and management of his transient ischemic attack, by tissue definition , the patient refuses to stay and left AGAINST MEDICAL ADVICE. Exam - Vitals Vital Signs: Vital Signs Temperature 97.0 F Temperature Source Temporal Artery Scan Pulse Rate [Pulse Oximeter 60 Right] Pulse Rate 64 Respiratory Rate 20 Blood Pressure [Left Arm] 184/93 Blood Pressure 170/93 Pulse Ox 93 Oxygen Delivery Method Room Air Height 5 ft 9 in Weight 198 lb Gait examination is discussed in the text of the discharge summary Data Peritnent Studies: Laboratory Results 05/15/18 05/15/18 Range/Units 04:41 04:41 Mean Blood Glucose 300.613 mg/dL Hemoglobin A1c 11.61 H (4.2-6.0) % Triglycerides 146 (44-200) mg/dL Cholesterol 246 H (120-200) mg/dL LDL Cholesterol, Calc 154.800 mg/dL VLDL Cholesterol 29 (0-40) mg/dL HDL Cholesterol 62 (40-150) mg/dL Cholesterol/HDL Ratio 3.96 (0-4.0) RATIO Procedures: CT scans and MRI scans can be reviewed in the [facility] system. I gave the prescription for an echocardiogram and advised calling a cardiology group in [place] for arrangement of that study. Patient Problems - Patient Problem List (1) Transient ischemic attack Current Visit: Yes Status: Acute Comment: Important here is that I'm defining this transient ischemic attack by a tissue definition, and not at time definition. He did not have any evidence of acute infarction, but had local neurologic changes with right arm weakness, gait leaning towards the right, facial droop, mild slurring of his speech, and dysphagia. We did risk assessment as best as we could, and he refuses to do any further evaluation including echocardiogram which I strongly recommended to make sure there was no evidence of cardioembolic source of stroke. Ultimately, I don't think that there is cardioembolic source, no evidence of atrial fibrillation here. That being said, an echocardiogram would confirm with more certainty that presumption. In the meantime, they've addressed his diabetes by prescribing metformin, have prescribed aspirin, have advised no smoking and no drinking of alcohol, prescribed enalapril for blood pressure, and atorvastatin for cholesterol management. I pleaded with the patient for over an hour to stay in the hospital but found the patient to be alert and oriented and aware of his situation, and as such he is allowed to make his own decisions regarding his health care albeit not a very bright decision. Code(s): G45.9 - Transient cerebral ischemic attack, unspecified Qualifiers: Transient cerebral ischemia type: other Qualified Code(s): G45.8 - Other transient cerebral ischemic attacks and related syndromes Category: Medical (2) Hypertension Current Visit: Yes Status: Acute Code(s): I10 - Essential (primary) hypertension Qualifiers: Hypertension type: essential hypertension Qualified Code(s): I10 - Essential (primary) hypertension Category: Medical (3) Diabetes Current Visit: Yes Status: Acute Code(s): E11.9 - Type 2 diabetes mellitus without complications Qualifiers: Diabetes mellitus type: type 2 Diabetes mellitus manager long term care insulin use: without manager long term care use Diabetes mellitus complication status: without complication Qualified Code(s): E11.9 - Type 2 diabetes mellitus without complications Category: Medical (4) Hypercholesteremia Current Visit: Yes Status: Acute Code(s): E78.00 - Pure hypercholesterolemia , unspecified Category: Medical
[2018-05-16] MEDS ORDERED: ENALAPRIL 10 MG TABLET PO SCH (09:00)
--- NOTE | 2018-05-16 10:47 | OT AM DAY ---
Diagnosis : Right Sided Weakness AM - Occupational Therapy S: The patient reports he is willing to try vital-stim. Nursing staff reports the patient is doing a lot better today than yesterday. O: Today the patient was able to come from supine to sit. We had him do his own sponge bath by preparing pre-made sponges. The patient was able to complete a bed bath with min assist for balance when standing. It was observed that the patient was able to use his right arm more frequently today and had more coordination; he just had some coordination issues, but they were very minimal. Today the patient was able to doff and don underwear as well as pants. He was able to don his shirt. He did need min assist with pants in order to start on his right leg vs. the left leg. The patient was able to use the restroom with min assist for balance for the turn into the bathroom. The patient was able to complete standing at sink to brush teeth and hair. The therapist encouraged use of right arm. The patient transferred to chair and received 30 minutes of vital-stim while completing oral motor strengthening including smiling, lateralization, opening and closing of lips, and working on swallowing with pudding and applesauce as well as honey thickened liquid. A: The patient has made progress from yesterday. He still requires min assist for ADLs and balance, but this is an improvement. He is using his right arm more to feed self and to complete ADLs including dressing self. The patient still is demonstrating right facial droop and swallowing difficulties. Vital-stim will hopefully help with neuromuscular reeducation of this. P: Continue seeing patient BID during the week and one time per day over the weekend for upper extremity strengthening, ADLs, and overall functional mobility. MTDD
--- NOTE | 2018-05-16 10:55 | OT PM DAY ---
Diagnosis : Right Sided Weakness PM - Occupational Therapy S: The patient reports he is a little bit tired from this morning, but was willing to complete therapy tasks. O: Today we worked on a toilet transfer with min assist for balance while doing a turn in the bathroom. The patient lost his balance slightly when completing this. We went to the sink to have the patient wash his hands with contact guard assist. Downstairs in therapy, the patient completed wall pulleys with 4 kilograms for shoulder extension on the right side x20 repetitions, rows, internal/external rotation with 2 kilograms, and shoulder adduction with 4 kilograms. He then completed pronation/supination with 4 pounds bilaterally, red theraband resisted horizontal abduction x30 repetitions , right hand strengthening with black power web x2 minutes, and digi-flex x1 minute. The patient's swallow was reassessed today since his other abilities had improved. We tried mechanical soft ground hamburger with gravy as well as nectar thickened liquid. Today in the beginning, the patient was able to take two drinks of nectar thickened liquid and it went down well. He then had one bite of his hamburger and this went well. The patient was cued to take one bite of hamburger and then one sip of liquid, working on small bites. This went well for the first 5 bites and 3 sips of liquid. After that amount of time , he started coughing and choking on the hamburger and really increased his coughing and choking with the nectar thickened liquid. We gave him a few minutes to settle down and we attempted this again. The patient took one bite of hamburger and coughed and one drink of nectar thickened liquid and coughed. A: The patient is not ready to be upgraded with his diet. The first couple of bites went well, but after that he is probably pooling and having difficulty clearing the piriformis sinuses. He did make a little progress from yesterday; however, at this point in time, the therapist does not feel that it is safe for the patient to be upgraded from the pureed foods and honey thickened liquids. The patient's upper extremity range of motion and coordination has made progress. He was able to tolerate quite a bit of resistance today with the right shoulder, elbow, and hand. P: Continue seeing patient BID during the week and one time per day over the weekend until discharge. MTDD
== END 2018-05-15 23:39 | disposition home or self-care (01) | DRG 92 ==
LOC: ER 07:48 → MED/SURG 10:26
PROVIDERS: ADMIT Internal Medicine; ATTEND Internal Medicine